=== PATIENT | female | born 1975 | race Caucasian/White ===

== ENCOUNTER 2017-11-04 12:06 | Emergency (ER) | payer OTHER ==
[~2017-11-04] VITALS: Ht 167.6 cm; Wt 82.1 kg
[~2017-11-04 12:06] MED LIST: ACEASPCAF; ACYC800 PO; ALBIPROI INH; ALBU90OI INH; ALBU90OI61 INH; ALPR.5 PO; AMIT25 PO; AMIT50 PO; AMIT75 PO; AMOCLA875 PO; AMOX500 PO; ASPI81EC PO; Amitriptyline150 MG PO; BENADRYL; BENZ100A PO; BUPR1 PO; BUSP15 PO; BUSP5 PO; Buspirone HCl7.5 MG PO; CARI350; CENTRUM VITAMIN PO; CEPH500 PO; CHLGLU.12S MT; CIPR500 PO; CITA20 PO; CLIN150 PO; CLIN300 PO; CLON.1; CLON.1 PO; CLON.3 PO; CLON.5 PO; CLON1; CLON1 PO; CLON2 PO; CRUTCH3 USE; CYCL10; CYCL10 PO; DICY20; DICY20 PO; DIPH25; DIVA250EC PO; DOXY100 PO; DOXY100T53 PO; DULO30; EPIN.3I; EPIN0.15 IM; ERGO400 PO; ERYT.5TO OD; ESCI10; ESCI10 PO; FLUC150A PO; GABA100 PO; GABA300 PO; HYDACE10B; HYDACE5; HYDACE5 PO; HYDHCL10; HYDHCL25; HYDHCL25 PO; HYDPAM25; HYDPAM25 PO; HYDPAM50; HYDPAM50 PO; HYOS.125 SL; IBUP200; IBUP800 PO; ISODICACE PO; KETO10 PO; Keflex500 MG PO; LACT10SY PO; LAMO100 PO; LAVAP4L PO; LIDO2TG30 TOP; LISINOPRIL; LITH300C PO; LITH300ER PO; LORA1; LORA1 PO; Lisinopril2.5 MG PO; MAGCIT300 PO; MAXALT; MECL25 PO; META800; META800 PO; METCAR500 PO; METH10; METH10 PO; METH40; METHADONE 10 MG; METHADOSE; METR500 PO; MULVITA; MULVITMIND PO; NAPR220; NAPR220 PO; NEOPOLHCSU RIGHTEAR; NITR100CA PO; Norco 5-325 Ta1 EACH PO; OMEP10ER; OMEP20ER PO; ONDA4 PO; OXYACE5T PO; OXYACE7.5T PO; OXYC10TA19 PO; OXYC30 PO; PENVK500 PO; PHENA200 PO; POLY17UD; POLY17UD PO; PROM25; PROM25 PO; PROM25S PR; PROP10; PROP10 PO; PROP120ER; PROP120ER PO; PROP20 PO; PROP80ER PO; RIZA; ROZEREM; RXCLIN PO; RXCYCL10 PO; RXHYDACE PO; RXLORA1 PO; RXOXYACE PO; RXPENVK250 PO; RXPROACE PO; RXTRAM50 PO; SULF10OPO OP; SULTRIDS PO; TRAACE; TRAM50 PO; TYL; VERA80 PO; VITB100; [UNRECOGNIZED DRUG - OTHER]; [UNRECOGNIZED DRUG - OTHER]; [UNRECOGNIZED DRUG - OTHER] PO; [UNRECOGNIZED DRUG - REMARK]; [UNRECOGNIZED DRUG - REMARK]; [UNRECOGNIZED DRUG - REMARK]; [UNRECOGNIZED DRUG - REMARK]; [UNRECOGNIZED DRUG - REMARK] PO
[2017-11-04 12:57] LABS: BASOPHILS ABSOLUTE AUTO 0.04 K/mm3 (0.00-0.23); BASOPHILS PERCENT AUTO 1 % (0-2); EOSINOPHILS ABSOLUTE AUTO 0.15 K/mm3 (0.00-0.68); EOSINOPHILS PERCENT AUTO 3 % (0-6); Hematocrit 40.7 % (33.0-51.0); Hemoglobin 14.2 g/dL (11.5-16.0); IMMATURE GRAN ABSOLUTE AUTO 0.01 K/mm3 (0.00-0.10); IMMATURE GRAN PERCENT AUTO 0 % (0-1); LYMPHOCYTES ABSOLUTE AUTO 1.62 K/mm3 (0.84-5.20); LYMPHOCYTES PERCENT AUTO 29 % (21-46); MONOCYTES ABSOLUTE AUTO 0.47 K/mm3 (0.16-1.47); MONOCYTES PERCENT AUTO 8 % (4-13); Mean Corpuscular HGB 31.8 pg (26.0-34.0); Mean Corpuscular HGB Conc 34.9 g/dL (31.5-36.5); Mean Corpuscular Volume 91 fL (80-100); Mean Platelet Volume 9.6 fL (9.1-12.4); NEUTROPHILS ABSOLUTE AUTO 3.32 K/mm3 (1.96-9.15); NEUTROPHILS PERCENT AUTO 59 % (41-73); Platelet Count 252 K/mm3 (150-400); RDW Coefficient Variation 12.1 % (11.7-14.2); RDW Standard Deviation 40.4 fL (35.1-46.3); Red Blood Cell Count 4.46 M/mm3 (3.80-5.20); White Blood Cell Count 5.61 K/mm3 (4.00-11.30)
[2017-11-04 13:15] LABS: Alanine Aminotransfer (ALT/SGP 38 U/L (12-78); Albumin, Blood 3.5 g/dL (3.4-5.0); Albumin/Globulin Ratio 0.9 (0.8-1.8); Alk Phos 95 U/L (50-136); Anion Gap 5 mmol/L (6-16); Aspartate Aminotrans (AST/SGOT 22 U/L (12-37); Bilirubin, Total 0.2 mg/dL (0.1-1.0); Blood Urea Nitrogen 9 mg/dL (8-24); Bun/Creatinine Ratio 12.9 (12.0-20.0); CO2, Blood 29 mmol/L (21-32); Calcium, Blood 8.8 mg/dL (8.5-10.1); Chloride, Blood 104 mmol/L (98-108); Globulin, Blood 3.7 g/dL (2.2-4.0); Glomerular Filtration Rate >60 (60-); Glucose, Blood 111 mg/dL (70-99); Potassium, Blood 3.9 mmol/L (3.5-5.5); Sodium, Blood 138 mmol/L (136-145); Total Protein, Blood 7.2 g/dL (6.4-8.2)
[2017-11-04 13:49] LABS: Source, Urine Clean Catch
[2017-11-04 13:57] LABS: Appearance, Urine Clear (Clear); Bilirubin, Urine Neg (Neg); Blood, Urine Neg (Neg); Color, Urine Yellow (P-Yellow); Glucose Qualitative, Urine Neg (Neg); Ketones, Urine Neg (Neg); Leukocyte Esterase, Urine Neg (Neg); Nitrite, Urine Neg (Neg); Protein, Urine Neg (Neg); Urobilinogen, Urine NORM (Normal)
[2018-02-02] MEDS ORDERED: BUPR150ER PO (13:55)
[2018-02-02] MEDS ORDERED: HYDHCL25 PO (13:55)
[2018-02-02] MEDS ORDERED: MECL12.5 PO (13:56)
[2018-02-02] MEDS ORDERED: FURO20 PO (13:56)
[2018-02-02] MEDS ORDERED: POTCHL10ER PO (13:57)
== END 2017-11-04 15:32 | disposition home or self-care (01) ==
LOC: ER 12:06
PROVIDERS: Emergency Medicine; Psychiatry & Neurology Psychiatry
DX: R25.1 Tremor, unspecified (principal); H57.8 Other specified disorders of eye and adnexa; I95.9 Hypotension, unspecified; F17.210 Nicotine dependence, cigarettes, uncomplicated; Z88.6 Allergy status to analgesic agent; Z88.8 Allergy status to other drugs, medicaments and biological substances; Z88.5 Allergy status to narcotic agent; Z88.2 Allergy status to sulfonamides; Z91.030 Bee allergy status; Z91.048 Other nonmedicinal substance allergy status; Z79.899 Other long term (current) drug therapy; Z86.19 Personal history of other infectious and parasitic diseases
CPT/HCPCS: 36415; 80053; 81003; 85025; 99283

== ENCOUNTER 2017-11-07 12:34 | Emergency (ER) | payer OTHER ==
[~2017-11-07] VITALS: Ht 167.6 cm; Wt 82.1 kg
[2018-02-02] MEDS ORDERED: HYDHCL25 PO (13:55)
[2018-02-02] MEDS ORDERED: BUPR150ER PO (13:55)
[2018-02-02] MEDS ORDERED: FURO20 PO (13:56)
[2018-02-02] MEDS ORDERED: MECL12.5 PO (13:56)
[2018-02-02] MEDS ORDERED: POTCHL10ER PO (13:57)
== END 2017-11-07 14:25 | disposition home or self-care (01) ==
LOC: ER 12:34
DX: G40.909 Epilepsy, unspecified, not intractable, without status epilepticus (principal); F31.9 Bipolar disorder, unspecified; Z86.19 Personal history of other infectious and parasitic diseases; Z79.899 Other long term (current) drug therapy
CPT/HCPCS: 99283

== ENCOUNTER 2018-11-22 18:49 | Emergency (ER) | payer OTHER ==
[~2018-11-22] VITALS: Ht 167.6 cm; Wt 81.7 kg
[~2018-11-22 18:49] MED LIST changes: +BUPR150ER PO; +FURO20 PO; +MECL12.5 PO; +POTCHL10ER PO
[2018-11-22] MEDS ORDERED: TYLENOL325 MG PO (20:06)
== END 2018-11-22 20:15 | disposition home or self-care (01) ==
LOC: ER 18:49
DX: S00.33XA Contusion of nose, initial encounter (principal); N18.9 Chronic kidney disease, unspecified; G43.909 Migraine, unspecified, not intractable, without status migrainosus; F17.210 Nicotine dependence, cigarettes, uncomplicated; Z88.0 Allergy status to penicillin; Z88.2 Allergy status to sulfonamides; Z79.899 Other long term (current) drug therapy; W18.30XA Fall on same level, unspecified, initial encounter
CPT/HCPCS: 70160; 99283-25

== ENCOUNTER 2019-03-07 18:46 | Emergency (ER) | payer OTHER ==
[~2019-03-07] VITALS: Ht 167.6 cm; Wt 81.7 kg
[~2019-03-07 18:46] MED LIST changes: +TYLENOL325 MG PO
[2019-03-07 20:15] LABS: BASOPHILS ABSOLUTE AUTO 0.03 K/mm3 (0.00-0.23); BASOPHILS PERCENT AUTO 1 % (0-2); EOSINOPHILS ABSOLUTE AUTO 0.13 K/mm3 (0.00-0.68); EOSINOPHILS PERCENT AUTO 2 % (0-6); Hemoglobin 13.4 g/dL (11.5-16.0); IMMATURE GRAN ABSOLUTE AUTO 0.02 K/mm3 (0.00-0.10); IMMATURE GRAN PERCENT AUTO 0 % (0-1); LYMPHOCYTES ABSOLUTE AUTO 1.28 K/mm3 (0.84-5.20); LYMPHOCYTES PERCENT AUTO 19 % (21-46); MONOCYTES ABSOLUTE AUTO 0.55 K/mm3 (0.16-1.47); MONOCYTES PERCENT AUTO 8 % (4-13); Mean Corpuscular HGB 30.9 pg (26.0-34.0); Mean Corpuscular HGB Conc 33.5 g/dL (31.5-36.5); Mean Corpuscular Volume 92 fL (80-100); Mean Platelet Volume 9.6 fL (9.1-12.4); NEUTROPHILS ABSOLUTE AUTO 4.62 K/mm3 (1.96-9.15); NEUTROPHILS PERCENT AUTO 70 % (41-73); Platelet Count 220 K/mm3 (150-400); RDW Coefficient Variation 12.1 % (11.7-14.2); RDW Standard Deviation 41.3 fL (35.1-46.3); Red Blood Cell Count 4.33 M/mm3 (3.80-5.20); White Blood Cell Count 6.63 K/mm3 (4.00-11.30)
[2019-03-07 20:31] LABS: Bilirubin, Urine Neg (Neg); Blood, Urine Neg (Neg); Glucose Qualitative, Urine Neg (Neg); Ketones, Urine Neg (Neg); Leukocyte Esterase, Urine Neg (Neg); Nitrite, Urine Neg (Neg); Protein, Urine 2+ (Neg); Urobilinogen, Urine 1+ (Normal)
[2019-03-07 20:39] LABS: Appearance, Urine Cloudy (Clear); Color, Urine Yellow (P-Yellow)
[2019-03-07 20:39] LABS: Acetaminophen, Random <2.0 ug/mL (10.0-30.0); Alanine Aminotransfer (ALT/SGP 73 U/L (12-78); Albumin, Blood 3.6 g/dL (3.4-5.0); Albumin/Globulin Ratio 1.1 (0.8-1.8); Alk Phos 150 U/L (50-136); Anion Gap 4 mmol/L (6-16); Aspartate Aminotrans (AST/SGOT 109 U/L (12-37); Bilirubin, Total 0.8 mg/dL (0.1-1.0); Blood Urea Nitrogen 12 mg/dL (8-24); CO2, Blood 31 mmol/L (21-32); Calcium, Blood 9.3 mg/dL (8.5-10.1); Chloride, Blood 103 mmol/L (98-108); Ethanol (Alcohol), Blood, Med <3 mg/dL; Globulin, Blood 3.3 g/dL (2.2-4.0); Glomerular Filtration Rate >60 (60-); Glucose, Blood 97 mg/dL (70-99); Potassium, Blood 3.7 mmol/L (3.5-5.5); Salicylate 2.3 mg/dL (2.8-20.0); Sodium, Blood 138 mmol/L (136-145); Total Protein, Blood 6.9 g/dL (6.4-8.2)
[2019-03-07 20:40] LABS: Squamous Epithelial Cells Many /hpf (Few); White Blood Cells, Urine 0-2 /hpf (0-5)
[2019-03-07 20:41] LABS: Amorphous Heavy (0-Heavy); Bacteria Few /hpf; Red Blood Cells, Urine 0-2 /hpf (0-2)
[2019-03-07 20:42] LABS: U Amphetamine Screen Not Detected; U Barbituate Screen Not Detected; U Benzodiazapine Screen Not Detected; U Buprenorphine Screen Not Detected; U Cannabinoids Screen Not Detected; U Cocaine Screen Not Detected; U Methadone Screen Not Detected; U Methamphetamine Screen Not Detected; U Opiates Screen Not Detected; U Oxycodone Screen Not Detected; U Phencyclidine Screen Not Detected; U Propoxyphene Screen Not Detected
[2019-03-07] MEDS ORDERED: FURO20 (21:36)
[2019-03-07] MEDS ORDERED: Lisinopril2.5 MG (21:37)
== END 2019-03-07 23:41 | disposition home or self-care (01) ==
LOC: ER 18:46
PROVIDERS: Emergency Medicine
DX: T40.1X1A Poisoning by heroin, accidental (unintentional), initial encounter (principal); G43.909 Migraine, unspecified, not intractable, without status migrainosus; Z59.0 Homelessness; Z88.0 Allergy status to penicillin; Z88.2 Allergy status to sulfonamides; Z88.5 Allergy status to narcotic agent; Z79.899 Other long term (current) drug therapy; Z87.891 Personal history of nicotine dependence
CPT/HCPCS: 80053; 81001; 81025; 84443; 85025; 96361; 96374; 99285-25; G0480; J2405; J7030; Q3014

== ENCOUNTER 2020-03-23 23:03 | Emergency (ER) | payer OTHER ==
[~2020-03-23] VITALS: Ht 170.2 cm; Wt 77.1 kg
[~2020-03-23 23:03] MED LIST changes: +FURO20; +Lisinopril2.5 MG
[2020-03-23] MEDS ORDERED: FURO20 (23:24)
[2020-03-23] MEDS ORDERED: GABA300 (23:25)
[2020-03-24] MEDS ORDERED: NARCAN4 M1 (00:37)
== END 2020-03-24 02:18 | disposition home or self-care (01) ==
LOC: ER 23:03
DX: T40.1X1A Poisoning by heroin, accidental (unintentional), initial encounter (principal); Z88.6 Allergy status to analgesic agent; Z91.030 Bee allergy status; Z88.8 Allergy status to other drugs, medicaments and biological substances; Z88.5 Allergy status to narcotic agent; Z88.0 Allergy status to penicillin; Z88.2 Allergy status to sulfonamides; Z79.899 Other long term (current) drug therapy; F31.9 Bipolar disorder, unspecified; Z86.19 Personal history of other infectious and parasitic diseases; Z87.891 Personal history of nicotine dependence
CPT/HCPCS: 82947; 93005; 93010; 96361; 96374; 96375; 99285-25; J1885; J7120

== ENCOUNTER 2021-04-15 15:38 | Emergency (ER) | payer OTHER ==
[~2021-04-15] VITALS: Ht 167.6 cm; Wt 77.1 kg
[~2021-04-15 15:38] MED LIST changes: +GABA300; +NARCAN4 M1
== END 2021-04-15 16:58 | disposition home or self-care (01) ==
LOC: ER 15:38
DX: S01.01XA Laceration without foreign body of scalp, initial encounter (principal); F17.210 Nicotine dependence, cigarettes, uncomplicated; Z91.038 Other insect allergy status; Z88.6 Allergy status to analgesic agent; Z88.8 Allergy status to other drugs, medicaments and biological substances; Z88.5 Allergy status to narcotic agent; Z88.0 Allergy status to penicillin; Z88.2 Allergy status to sulfonamides; Z79.899 Other long term (current) drug therapy; W01.190A Fall on same level from slipping, tripping and stumbling with subsequent striking against furniture, initial encounter
CPT/HCPCS: 12001; 70450; 96372-59; 99283-25; A9270; J1885

== ENCOUNTER 2022-05-12 15:10 | Emergency (ER) | payer OTHER ==
[~2022-05-12] VITALS: Ht 167.6 cm; Wt 70.3 kg
[2022-05-12] MEDS ORDERED: Norco 5-325 Ta1 EACH PO (16:14)
== END 2022-05-12 17:15 | disposition home or self-care (01) ==
LOC: ER 15:10
DX: J93.9 Pneumothorax, unspecified (principal); Z91.030 Bee allergy status; Z88.8 Allergy status to other drugs, medicaments and biological substances; Z88.5 Allergy status to narcotic agent; Z88.0 Allergy status to penicillin; Z88.2 Allergy status to sulfonamides; Z79.899 Other long term (current) drug therapy; Z87.891 Personal history of nicotine dependence; W19.XXXA Unspecified fall, initial encounter
CPT/HCPCS: 71046; 99283-25; A9270

== ENCOUNTER 2022-05-12 23:21 | Emergency (ER) | payer OTHER ==
[~2022-05-12] VITALS: Ht 167.6 cm; Wt 73.1 kg
== END 2022-05-13 01:14 | disposition home or self-care (01) ==
LOC: ER 23:21
DX: S22.49XA Multiple fractures of ribs, unspecified side, initial encounter for closed fracture (principal); J93.9 Pneumothorax, unspecified; F17.210 Nicotine dependence, cigarettes, uncomplicated; Z88.0 Allergy status to penicillin; Z88.2 Allergy status to sulfonamides; Z88.5 Allergy status to narcotic agent; Z88.8 Allergy status to other drugs, medicaments and biological substances; Z79.899 Other long term (current) drug therapy; V19.9XXA Pedal cyclist (driver) (passenger) injured in unspecified traffic accident, initial encounter
CPT/HCPCS: 71046; 99283-25; A9270

== ENCOUNTER 2023-06-16 18:18 | Emergency (ER) | payer OTHER ==
[~2023-06-16] VITALS: Ht 167.6 cm; Wt 61.2 kg
[~2023-06-16 18:18] MED LIST changes: +LIDO700A20 TOP; +OXAYDO5 M1 PO
[2023-06-16 18:20] VITALS: BP 139/94
[2023-06-16] MEDS ORDERED: ALBENDAZOLE200 MG PO ×2 (18:27→20:00)
== END 2023-06-16 18:33 | disposition home or self-care (01) ==
LOC: ER 18:18
DX: B80 Enterobiasis (principal); Z91.030 Bee allergy status; Z88.6 Allergy status to analgesic agent; Z88.5 Allergy status to narcotic agent; Z88.0 Allergy status to penicillin; Z88.2 Allergy status to sulfonamides; Z79.899 Other long term (current) drug therapy; G43.909 Migraine, unspecified, not intractable, without status migrainosus; F17.210 Nicotine dependence, cigarettes, uncomplicated
CPT/HCPCS: 99282

== ENCOUNTER 2023-06-20 00:08 | Emergency (ER) | payer OTHER ==
[~2023-06-20] VITALS: Ht 162.6 cm; Wt 59.0 kg
[~2023-06-20 00:08] MED LIST changes: +ALBENDAZOLE200 MG PO
[2023-06-20 01:15] VITALS: BP 109/77
[2023-06-20] MEDS ORDERED: KLONOPIN0.5 M9 PO (02:01)
[2023-06-20] MEDS ORDERED: BUPROPION XL150 M1 PO (02:01)
[2023-06-20] MEDS ORDERED: LAMICTAL200 MG PO (02:01)
[2023-06-20] MEDS ORDERED: AMITRIPTYLINE150 M6 PO (02:02)
[2023-06-20] MEDS ORDERED: ALBENDAZOLE200 MG PO (02:34)
== END 2023-06-20 02:45 | disposition home or self-care (01) ==
LOC: ER 00:08
DX: B80 Enterobiasis (principal); Z76.0 Encounter for issue of repeat prescription; F17.210 Nicotine dependence, cigarettes, uncomplicated; Z91.030 Bee allergy status; Z88.6 Allergy status to analgesic agent; Z88.8 Allergy status to other drugs, medicaments and biological substances; Z88.5 Allergy status to narcotic agent; Z88.0 Allergy status to penicillin; Z88.2 Allergy status to sulfonamides; Z79.899 Other long term (current) drug therapy
CPT/HCPCS: 99282

== ENCOUNTER → 2023-06-25 | Outpatient (CLI) | payer OTHER ==
[~2023-06-25] MED LIST changes: +AMITRIPTYLINE150 M6 PO; +BUPROPION XL150 M1 PO; +KLONOPIN0.5 M9 PO; +LAMICTAL200 MG PO
== END ==
LOC: LAB SHORT 18:00 → LAB 18:00
DX: R19.7 Diarrhea, unspecified (principal)
CPT/HCPCS: 87177; 87209

== ENCOUNTER → 2023-08-11 | Outpatient (CLI) | payer OTHER ==
[2023-08-29 08:01] LABS: OVA AND PARASITE,FECAL INTERP Negative (Negative)
== END ==
LOC: LAB 17:00 → LAB SHORT 17:00
PROVIDERS: Family Medicine
DX: R19.7 Diarrhea, unspecified (principal)
CPT/HCPCS: 87177; 87209

== ENCOUNTER 2023-10-20 06:44 | Day surgery (SDC) | payer OTHER ==
[~2023-10-20] VITALS: Ht 167.6 cm; Wt 59.3 kg
[2023-10-20] MEDS ORDERED: Inderal40 MG (07:04)
[2023-10-20] MEDS ORDERED: TRAZ50 (07:05)
[2023-10-20] MEDS ORDERED: AMITRIPTYLINE150 M1 (07:05)
[2023-10-20] MEDS ORDERED: ERGO400 (07:06)
[2023-10-20] MEDS ORDERED: MAGCIT300 (07:06)
[2023-10-20] MEDS ORDERED: Vitamin B Comple1 EA (07:06)
[2023-10-20] MEDS ORDERED: ONE DAILY MUL400 MCG (07:06)
[2023-10-20] MEDS ORDERED: Lidocaine HCl/Pf 1% 5 ML VIAL ONE (07:33)
[2023-10-20] MEDS ORDERED: Lactated Ringer's 1,000 ML IV ONE ×2 (07:36→07:46)
[2023-10-20] MEDS ORDERED: propofoL 50 ML IV ONE ×2 (07:36→08:55)
[2023-10-20 09:30] VITALS: BP 119/71
== END 2023-10-20 09:55 | disposition home or self-care (01) ==
LOC: ORSCSDS 06:44
PROVIDERS: Internal Medicine Gastroenterology
PROC: 0DB68ZX Excision of Stomach, Via Natural or Artificial Opening Endoscopic, Diagnostic (ICD-10-PCS; principal; 2023-10-20 08:00)
PROC: 0DJD8ZZ Inspection of Lower Intestinal Tract, Via Natural or Artificial Opening Endoscopic (ICD-10-PCS; principal; 2023-10-20 08:00)
PROC: 0DB98ZX Excision of Duodenum, Via Natural or Artificial Opening Endoscopic, Diagnostic (ICD-10-PCS; principal; 2023-10-20 08:00)
DX: R63.4 Abnormal weight loss (principal); K92.1 Melena; K90.0 Celiac disease; B18.2 Chronic viral hepatitis C; K29.70 Gastritis, unspecified, without bleeding; K64.4 Residual hemorrhoidal skin tags; I10 Essential (primary) hypertension; R56.9 Unspecified convulsions; F31.9 Bipolar disorder, unspecified; F41.9 Anxiety disorder, unspecified; Z87.820 Personal history of traumatic brain injury; Z87.891 Personal history of nicotine dependence; Z83.719 Family history of colon polyps, unspecified; Z79.899 Other long term (current) drug therapy
CPT/HCPCS: 88305; 88342; J2001; J2704; J7120

== ENCOUNTER 2024-10-01 07:26 | Day surgery (SDC) | payer OTHER ==
[2024-10-01] VITALS (34 sets, daily range): BP systolic 80–133; BP diastolic 53–88
[~2024-10-01] VITALS: Ht 163 cm; Wt 58.2 kg
[~2024-10-01 07:26] MED LIST changes: +AMITRIPTYLINE150 M1 PO; +B-12500 MC2 PO; +DULO60 PO; +ERGO400; +Inderal 20 mg T20 MG PO; +MAGCIT300; +MULTI-VITAMIN1 EAC2 PO; +Norco 10-325 T1 EACH PO; +Ondansetron Odt8 MG SL; +TRAZ50 PO; +Vitamin B Comple1 EA
[2024-10-01] MEDS ORDERED: Chlorhexidine Mouth Care 15 ML UDC MT SCH (07:40)
[2024-10-01] MEDS ORDERED: OxyCODONE HCL 10 MG TABCR PO SCH (07:40)
[2024-10-01] MEDS ORDERED: Ropivacaine 0.5% HCl/Pf 123.125 MG,EPINEPHrine HCL 0.25 MG,Ketorolac Tromethamine 15 MG... INFIL SCH (07:40)
[2024-10-01] MEDS ORDERED: Tranexamic Acid 1,000 MG in NS 100 ML IV SCH (07:40)
[2024-10-01] MEDS ORDERED: Acetaminophen 500 MG Tab PO SCH ×2 (07:40→16:00)
[2024-10-01] MEDS ORDERED: CeFAZolin Sodium 2,000 MG in NS 100 ML IV SCH ×2 (07:40→18:00)
[2024-10-01] MEDS ORDERED: Lactated Ringer's 1,000 ML IV SCH ×3 (07:40→15:55)
[2024-10-01] MEDS ORDERED: Vancomycin HCL 1,000 MG in NS 250 ML IV SCH (09:10)
[2024-10-01] MEDS ORDERED: Midazolam HCl 1MG / ML 2ML Vial ONE (09:28)
[2024-10-01] MEDS ORDERED: Ondansetron 8 MG SoluTab SL PRN (09:30)
[2024-10-01] MEDS ORDERED: Prochlorperazine Edisylate 10 mg Vial IV PRN (09:35)
[2024-10-01] MEDS ORDERED: Bisacodyl 10 MG Supp PR PRN (09:35)
[2024-10-01] MEDS ORDERED: OxyCODONE HCL 5 MG TAB PO PRN ×2 (09:35→09:45)
[2024-10-01] MEDS ORDERED: Metoclopramide HCl 5MG / ML 2ML Vial IV PRN (09:40)
[2024-10-01] MEDS ORDERED: HYDROmorphone HCl/Pf 1MG SYR IV PRN ×3 (09:40→11:00)
[2024-10-01] MEDS ORDERED: FLU VACC TS2024-25(6MOS UP)/PF 45 MCG/0.5 ML SYRINGE IM PRN (09:40)
[2024-10-01] MEDS ORDERED: Promethazine HCl 25 MG Tab PO PRN (09:40)
[2024-10-01] MEDS ORDERED: Magnesium Hydroxide Conc 10 ML UDC PO PRN (09:40)
[2024-10-01] MEDS ORDERED: Ondansetron HCl 2 MG / ML 2ML Vial IV PRN ×2 (09:40→11:05)
[2024-10-01] MEDS ORDERED: propofoL 20 ML IV ONE ×2 (09:49→15:42)
--- NOTE | 2024-10-01 09:54 | NUR ---
History, Chart, Medications and Allergies reviewed before start of procedure. Patient up to Ambulate independently. Gait steady. Pre-Op teaching done. Pt verbalizes understanding. Patient confirms NPO status and agrees with scheduled surgery. Patient reports completing Chlorhexadine shower X6 prior to admission to hospital. Patient's glasses & upper denture transferred to PACU along with rest of belongings. Two rings removed from right hand by patient & given to significant other, Angel.
[2024-10-01] MEDS ORDERED: Phenylephrine HCl 100 MCG/ML-NS 10MLSYR (1MG/10ML) ONE (10:14)
[2024-10-01] MEDS ORDERED: HYDROmorphone HCl/Pf 1MG SYR ONE ×2 (10:34→12:01)
[2024-10-01] MEDS ORDERED: Dexamethasone Sod Phos 10 MG/ML 1ML VIAL ONE (10:36)
[2024-10-01] MEDS ORDERED: Ondansetron HCl 2 MG / ML 2ML Vial ONE ×2 (10:36→12:09)
[2024-10-01] MEDS ORDERED: Labetalol HCL 5 MG/ML 4ML Injection (Single Dose) IV PRN (10:55)
[2024-10-01] MEDS ORDERED: FentaNYL Citrate 50 MCG/ML 2 ML Injection IV PRN ×2 (10:55→11:00)
[2024-10-01] MEDS ORDERED: Scopolamine Hydrobromide Patch TOP SCH (11:00)
[2024-10-01] MEDS ORDERED: Atropine Sulfate 0.1 MG/ML 10ML SYR IV PRN (11:00)
[2024-10-01] MEDS ORDERED: Albuterol 2.5 MG/3 ML VIAL INH PRN (11:00)
[2024-10-01] MEDS ORDERED: Sugammadex Sodium 200 MG/2ML SDV (100 MG/ML) ONE ×2 (11:25→16:26)
[2024-10-01] MEDS ORDERED: FentaNYL Citrate 50 MCG/ML 2 ML Injection ONE (11:54)
[2024-10-01] MEDS ORDERED: Propranolol HCL 20 MG TAB PO SCH (14:00)
--- NOTE | 2024-10-01 15:30 | NUR ---
HYPOTENSION PT'S BP 80'S/40'S POST OP. 250ML BOLUS OF FLUID STARTED AT 1346. BP IMPROVED TO 94/[address] ROWE NOTIFIED THAT BOLUS WAS GIVEN.
[2024-10-01] MEDS ORDERED: FentaNYL Citrate 50 MCG/ML 5 ML Injection ONE (15:42)
--- NOTE | 2024-10-01 16:14 | NUR ---
AT APPROXIMATELY 1442 SULEIMAN RN ADMINISTERED ADMINISTERED OXYCODONE, PER SULEIMAN WHEN PT ROLLED FROM HER SIDE TO HER BACK SHE COMPLAINED OF EXTREME PAIN AND REPORTED FEELING LIKE HER HIP DISLOCATED. DR. DE LOS SANTOS NOTIFIED BY SULEIMAN JEREZ OF PAIN AND CONCERN FOR HIP DISLOCATION. THIS RN EXAMINED PT, SWELLING/BULGING TO L HIP/THIGH PRESENT AT REASSESSMENT, NOT PRESENT PRIOR TO PT'S COMPLAINT OF INCREASED PAIN. PT UNABLE TO FULLY STRAIGHTEN L LEG AND SHE DEMONSTRATED DECREASED ABILITY TO PLATAR/DORSIFLEX L FOOT. PULSES PRESENT AND UNCHANGED SINCE PREVIOUS ASSESSMENTS. PT SOBBING/ANXIOUS, PT COACHED TO USE BREATHING TECHNIQUES AND DISTRACTION DURING EXAMINATION, PT RESPONDED WELL TO EDUCATION AND REASSURANCE. PT'S S/O AND MOTHER WERE NOTIFIED OF CHANGES BY PT. DR. ROWE PRESENT AT THE BEDSIDE AT 1530 TO EXAMINE PT. IV DILAUDID GIVEN FOR PAIN. PT TAKEN BACK TO DAY SURGERY AT APPROXIMATELY 1550. PT'S S/O AND MOTHER WERE NOTIFIED BY PHONE AND ASSISTED BACK TO DAY SURGERY BY SHAHID COY RN WHEN THEY ARRIVED TO THE HOSPITAL.
[2024-10-01] MEDS ORDERED: Lidocaine HCl 2% 20 ML MDV ONE (16:21)
[2024-10-01] MEDS ORDERED: Atropine Sulfate 0.4 MG/1 ML Vial ONE (16:35)
[2024-10-01] MEDS ORDERED: Glycopyrrolate 0.2 MG/ML 5ML VIAL ONE (16:38)
[2024-10-01] MEDS ORDERED: Naloxone HCl 0.4MG / ML 1ML Vial ONE (16:47)
[2024-10-01] MEDS ORDERED: Ketorolac Tromethamine 15mg Vial IV SCH (18:00)
--- NOTE | 2024-10-01 18:04 | NUR ---
PT ARRIVED FROM PACU TO RM 219 AT 1745. PT ALERT/ORIENTED UPON ARRIVAL TO THE ROOM. PT REPORTS PAIN IS TOLERABLE. BP SOFT BUT WNL. FAMILY AT BEDSIDE FOR SUPPORT. L HIP INCISION SITE WNL.
[2024-10-01] MEDS ORDERED: DiphenhydrAMINE HCL 25 MG Cap PO PRN (18:10)
--- NOTE | 2024-10-01 20:01 | NUR ---
SHIFT SUMMARY PT IS POD#0 FROM L VASU AND CLOSED REDUCTION WITH DR. ROWE. PAIN HAS BEEN MANAGED WITH PO PAIN MEDICATION SINCE CLOSED REDUCTION WAS COMPLETED. PT IS TOLERATING PO. SHE COMPLAINS OF A SORE THROAT, EDUCATION PROVIDED. ABDUCTION PILLOW IN PLACE. PT HAS BEEN ABLE TO VOID. BP SOFT, PT ASYMPTOMATIC. BEDSIDE REPORT GIVEN TO ALONDRA JEREZ.
[2024-10-01] MEDS ORDERED: LamoTRIgine 100 MG Tab PO SCH (21:00)
[2024-10-01] MEDS ORDERED: Amitriptyline HCl 50 MG Tab PO SCH (21:00)
[2024-10-01] MEDS ORDERED: TraZODone HCl 50 MG Tab PO SCH (21:00)
[2024-10-01] MEDS ORDERED: Docusate Sodium 100 MG Cap PO SCH (21:00)
[2024-10-02] MEDS ORDERED: Ketorolac Tromethamine 15mg Vial IV SCH ×2
--- NOTE | 2024-10-02 03:43 | NUR ---
SHIFT SUMMARY POD 1 LEFT HIP VASU WITH CLOSED REDUCTION. DRESSING CDI. [facility] THERAPY TO LEFT HIP ROBER. PAIN MANAGED PER EMAR. ABDUCTION PILLOW IN PLACE. IS VOIDING. ROBER PO INTAKE. ABX INFUSED PER ORDERS. S/O AT BEDSIDE. PLAN TO WORK WITH THERAPY TODAY. WILL GIVE REPORT TO ONCOMING RN.
[2024-10-02 05:15] VITALS: BP 82/52
[2024-10-02 05:27] LABS: BASOPHILS ABSOLUTE AUTO 0.01 K/mm3 (0.00-0.23); BASOPHILS PERCENT AUTO 0 % (0-2); EOSINOPHILS PERCENT AUTO 0 % (0-6); Hematocrit 24.6 % (33.0-51.0); Hemoglobin 8.5 g/dL (11.5-16.0); IMMATURE GRAN ABSOLUTE AUTO 0.05 K/mm3 (0.00-0.10); IMMATURE GRAN PERCENT AUTO 0 % (0-1); LYMPHOCYTES ABSOLUTE AUTO 0.61 K/mm3 (0.84-5.20); LYMPHOCYTES PERCENT AUTO 5 % (21-46); MONOCYTES PERCENT AUTO 6 % (4-13); Mean Corpuscular HGB Conc 34.6 g/dL (31.5-36.5); Mean Corpuscular Volume 90 fL (80-100); Mean Platelet Volume 9.9 fL (9.1-12.4); NEUTROPHILS PERCENT AUTO 88 % (41-73); Platelet Count 148 K/mm3 (150-400); RDW Coefficient Variation 13.4 % (11.7-14.2); RDW Standard Deviation 44.1 fL (35.1-46.3); Red Blood Cell Count 2.74 M/mm3 (3.80-5.20); White Blood Cell Count 11.27 K/mm3 (4.00-11.30)
[2024-10-02 06:03] LABS: Bun/Creatinine Ratio 17.5 (12.0-20.0); Calcium, Blood 8.3 mg/dL (8.5-10.1); Creatinine, Blood 0.68 mg/dL (0.40-1.00); Potassium, Blood 4.4 mmol/L (3.5-5.5)
[2024-10-02 07:07] VITALS: BP 91/54
[2024-10-02] MEDS ORDERED: Aspirin 81 MG Chew PO SCH (09:00)
[2024-10-02] MEDS ORDERED: DULoxetine HCL 60 MG Capsule DR PO SCH (09:00)
[2024-10-02] MEDS ORDERED: Cyanocobalamin 500 MCG Tab PO SCH (09:00)
[2024-10-02] MEDS ORDERED: BusPIRone HCl 5 MG Tab PO SCH (09:00)
[2024-10-02] MEDS ORDERED: Multivitamins/Minerals TAB PO SCH (09:00)
[2024-10-02 10:58] VITALS: BP 93/59
--- NOTE | 2024-10-02 11:27 | NUR ---
MORNING NOTE THIS RN ASSUMED CARE AT APPROX 0715. PATIENT ALERT AND ORIENTED X4. CAN EXPERIENCE EPISODES OF INCREASED ANXIETY ESPECIALLY WITH PAIN - MANAGING PAIN PER EMAR AND WITH KPAD. MANAGING ANXIETY WITH THERAPUETIC COMMUNICATION, EDUCATION. VSS. SBP 90s. MAP >65. ASYMPTOMATIC OF SOFT BP. IVF INFUSING PER EMAR. TITRATED FROM 2L VIA NC TO ROOM AIR, SATs >90%. RR EVEN, UNLABORED. POD 1 L VASU AND CLOSED REDUCTION. AQUACEL DRESSING C/D/I. POSTERIOR PRECAUTIONS. WORKED WITH PHYSICAL THERAPY THIS MORNING - CLEARED. AWAITING OCCUPATIONAL THERAPY EVAL. UP IN CHAIR. VOIDING. CALL LIGHT IN REACH.
[2024-10-02] MEDS ORDERED: ASPI81CH PO (13:15)
[2024-10-02] MEDS ORDERED: Percocet 5-3251 EACH PO (13:16)
--- NOTE | 2024-10-02 13:37 | NUR ---
DISCHARGE NOTE NO ACUTE CHANGES FROM MORNING NOTE. PATIENT LETHARGIC POST PHYSICAL THERAPY EVAL, EASILY AROUSABLE WITH VERBAL STIMULI. ALERT AND ORIENTED X4. WORKED WITH OCCUPATIONAL THERAPY - CLEARED FOR DC HOME. VSS. SBP REMAINS 90s. MAP >65. PATIENT REMAINS ASYMPTOMATIC. MANAGING PAIN WITH PRESCRIBED THERAPY. IV REMOVED. DC EDUCATION PROVIDED - PATIENT AND HER STATES UNDERSTANDING. PATIENT TRANSFERRED TO PERSONAL VEHICLE VIA WHEELCHAIR AT APPROX 1330. PERSONAL BELONGINGS WITH PATIENT.
== END 2024-10-02 13:30 | disposition home or self-care (01) ==
LOC: ORSCMMR 07:26 → SURS 07:26 → ORSCMMR 07:28 → ORD 09:15 → ORSCMMR 09:15 → ORD 11:00 → SURS 12:59 → ORSCMMR 10-02 13:30
PROVIDERS: Orthopaedic Surgery
PROC: 0SRB0JZ Replacement of Left Hip Joint with Synthetic Substitute, Open Approach (ICD-10-PCS; principal; 2024-10-01 09:15)
DX: M16.12 Unilateral primary osteoarthritis, left hip (principal); Z87.891 Personal history of nicotine dependence; F31.9 Bipolar disorder, unspecified; G40.909 Epilepsy, unspecified, not intractable, without status epilepticus; Z79.899 Other long term (current) drug therapy
CPT/HCPCS: 36415; 72170; 80048; 85025; 94760; 97110; 97116; 97163; 97165; 97530; 97535; A9270; C1776; J0171; J0461; J0690; J0735; J1100; J1171; J1885; J2250; J2310; J2371; J2405; J2704; J2795; J3010; J3370; J7050; J7120

== ENCOUNTER 2025-04-05 23:50 | Emergency (ER) | payer OTHER ==
[~2025-04-05] VITALS: Ht 167.6 cm; Wt 49.9 kg
[~2025-04-05 23:50] MED LIST changes: +ASPI81CH PO; +Percocet 5-3251 EACH PO
[2025-04-06 00:24] VITALS: BP 166/97
[2025-04-06] MEDS ORDERED: Ketorolac Tromethamine 15mg Vial IV ONE (00:25)
[2025-04-06] MEDS ORDERED: DiphenhydrAMINE HCl 50 MG/ML 1ML Vial IV ONE (00:25)
[2025-04-06] MEDS ORDERED: Prochlorperazine Edisylate 10 mg Vial IV ONE (00:25)
[2025-04-06] MEDS ORDERED: NS 1,000 ML IV SCH (00:25)
[2025-04-06 00:53] LABS: BASOPHILS ABSOLUTE AUTO 0.05 K/mm3 (0.00-0.23); BASOPHILS PERCENT AUTO 1 % (0-2); EOSINOPHILS ABSOLUTE AUTO 0.19 K/mm3 (0.00-0.68); EOSINOPHILS PERCENT AUTO 3 % (0-6); Hematocrit 38.8 % (33.0-51.0); Hemoglobin 13.0 g/dL (11.5-16.0); IMMATURE GRAN ABSOLUTE AUTO 0.01 K/mm3 (0.00-0.10); IMMATURE GRAN PERCENT AUTO 0 % (0-1); LYMPHOCYTES ABSOLUTE AUTO 2.41 K/mm3 (0.84-5.20); LYMPHOCYTES PERCENT AUTO 36 % (21-46); MONOCYTES ABSOLUTE AUTO 0.64 K/mm3 (0.16-1.47); MONOCYTES PERCENT AUTO 10 % (4-13); Mean Corpuscular HGB Conc 33.5 g/dL (31.5-36.5); Mean Corpuscular Volume 86 fL (80-100); NEUTROPHILS ABSOLUTE AUTO 3.41 K/mm3 (1.96-9.15); NEUTROPHILS PERCENT AUTO 51 % (41-73); NRBC ABSOLUTE 0.00 K/mm3 (0.00-0.02); NRBC Auto 0.0 /100 WBC (0.0-0.2); Platelet Count 231 K/mm3 (150-400); RDW Coefficient Variation 14.3 % (11.7-14.2); RDW Standard Deviation 45.2 fL (35.1-46.3)
[2025-04-06] MEDS ORDERED: Petrolatum Ointment 5 gm TOP ONE (00:55)
[2025-04-06 01:08] LABS: Anion Gap 6.0 mmol/L (3-11); Blood Urea Nitrogen 15.0 mg/dL (8-24); CO2, Blood 30.0 mmol/L (21-32); Calcium, Blood 9.0 mg/dL (8.5-10.1); Chloride, Blood 107.0 mmol/L (98-108); Creatinine, Blood 0.79 mg/dL (0.40-1.00); Glucose, Blood 77.0 mg/dL (70-99); Magnesium, Blood 1.9 mg/dL (1.6-2.4); Potassium, Blood 3.3 mmol/L (3.5-5.5); Sodium, Blood 140.0 mmol/L (136-145)
[2025-04-06] MEDS ORDERED: ALOE VERA237 ML TOP (01:26)
[2025-04-06] MEDS ORDERED: ACET500 PO (01:26)
[2025-04-06] MEDS ORDERED: IBUP600 PO (01:26)
== END 2025-04-06 01:45 | disposition home or self-care (01) ==
LOC: ER 23:50
PROVIDERS: Emergency Medicine
DX: L55.0 Sunburn of first degree (principal); R51.9 Headache, unspecified; F17.210 Nicotine dependence, cigarettes, uncomplicated; Z88.8 Allergy status to other drugs, medicaments and biological substances; Z91.030 Bee allergy status; Z88.2 Allergy status to sulfonamides; Z88.5 Allergy status to narcotic agent; Z79.899 Other long term (current) drug therapy; Z79.82 Long term (current) use of aspirin
CPT/HCPCS: 80048; 83735; 85025; 96374; 96375; 99282; A9270; J0780; J1200; J1885; J7030

== ENCOUNTER 2025-05-16 03:10 | Emergency (ER) | payer OTHER ==
[~2025-05-16] VITALS: Ht 165.1 cm; Wt 49.9 kg
[~2025-05-16 03:10] MED LIST changes: +ACET500 PO; +ALOE VERA237 ML TOP; +IBUP600 PO
[2025-05-16 04:07] LABS: BASOPHILS ABSOLUTE AUTO 0.04 K/mm3 (0.00-0.23); BASOPHILS PERCENT AUTO 1 % (0-2); EOSINOPHILS ABSOLUTE AUTO 0.20 K/mm3 (0.00-0.68); EOSINOPHILS PERCENT AUTO 4 % (0-6); Hematocrit 37.2 % (33.0-51.0); Hemoglobin 12.8 g/dL (11.5-16.0); IMMATURE GRAN ABSOLUTE AUTO 0.01 K/mm3 (0.00-0.10); IMMATURE GRAN PERCENT AUTO 0 % (0-1); LYMPHOCYTES ABSOLUTE AUTO 1.70 K/mm3 (0.84-5.20); LYMPHOCYTES PERCENT AUTO 34 % (21-46); MONOCYTES ABSOLUTE AUTO 0.50 K/mm3 (0.16-1.47); MONOCYTES PERCENT AUTO 10 % (4-13); Mean Corpuscular HGB Conc 34.4 g/dL (31.5-36.5); Mean Corpuscular Volume 84 fL (80-100); NEUTROPHILS ABSOLUTE AUTO 2.62 K/mm3 (1.96-9.15); NEUTROPHILS PERCENT AUTO 52 % (41-73); NRBC ABSOLUTE 0.00 K/mm3 (0.00-0.02); NRBC Auto 0.0 /100 WBC (0.0-0.2); Platelet Count 218 K/mm3 (150-400); RDW Coefficient Variation 13.3 % (11.7-14.2); RDW Standard Deviation 41.1 fL (35.1-46.3)
[2025-05-16 04:22] LABS: Alanine Aminotransfer (ALT/SGP 30 U/L (12-78); Albumin, Blood 3.9 g/dL (3.4-5.0); Albumin/Globulin Ratio 1.3 (0.8-1.8); Anion Gap 8 mmol/L (3-11); Aspartate Aminotrans (AST/SGOT 24 U/L (12-37); Bilirubin, Total 0.2 mg/dL (0.1-1.0); Blood Urea Nitrogen 12 mg/dL (8-24); CO2, Blood 28 mmol/L (21-32); Calcium, Blood 9.2 mg/dL (8.5-10.1); Chloride, Blood 106 mmol/L (98-108); Creatinine, Blood 0.70 mg/dL (0.40-1.00); Globulin, Blood 3.1 g/dL (2.2-4.0); Glucose, Blood 86 mg/dL (70-99); Potassium, Blood 3.8 mmol/L (3.5-5.5); Sodium, Blood 138 mmol/L (136-145); Total Protein, Blood 7.0 g/dL (6.4-8.2)
[2025-05-16 05:45] LABS: Source, Urine Clean Catch
[2025-05-16 05:52] LABS: Bilirubin, Urine Neg (Neg); Color, Urine Yellow (P-Yellow); Glucose Qualitative, Urine Neg (Neg); Ketones, Urine Neg (Neg); Leukocyte Esterase, Urine Neg (Neg); Protein, Urine Neg (Neg); Specific Gravity, Urine 1.015 (1.003-1.022); Urobilinogen, Urine NORM (Normal)
[2025-05-16 06:27] LABS: C-Reactive Protein, High Sens. < 0.160 mg/L (0.000-3.000)
[2025-05-16 06:31] VITALS: BP 131/83
== END 2025-05-16 06:44 | disposition home or self-care (01) ==
LOC: ER 03:10
PROVIDERS: Physician Assistant
DX: L30.9 Dermatitis, unspecified (principal); F17.210 Nicotine dependence, cigarettes, uncomplicated; Z91.030 Bee allergy status; Z88.5 Allergy status to narcotic agent; Z88.8 Allergy status to other drugs, medicaments and biological substances; Z88.2 Allergy status to sulfonamides; Z79.899 Other long term (current) drug therapy; Z79.82 Long term (current) use of aspirin
CPT/HCPCS: 80053; 81003; 85025; 85651; 86141; 99282